=== PATIENT | female | born 1965 | race Caucasian/White ===

== ENCOUNTER 2021-04-18 14:15 | Outpatient (CLI) | payer MEDICARE, OTHER ==
[2021-04-19 17:56] LABS: SARS-CoV-2 PCR by NAA Not Detected (NotDetected)
== END 2021-04-18 14:16 | disposition home or self-care (01) ==
LOC: CSHLAB 14:15
PROVIDERS: ATTEND Internal Medicine Critical Care Medicine
DX: Z20.822 Contact with and (suspected) exposure to COVID-19 (principal)
CPT/HCPCS: U0003; U0005

== ENCOUNTER 2021-04-22 14:51 | Outpatient (CLI) | payer MEDICARE, OTHER | END 2021-04-22 14:52 | disposition home or self-care (01) | LOC: CSHCP 14:51 | PROVIDERS: ATTEND Internal Medicine Critical Care Medicine | DX: J44.9 Chronic obstructive pulmonary disease, unspecified (principal) | CPT/HCPCS: 94060; 94726; 94760 ==